=== PATIENT | female | born 1975 | race Caucasian/White ===

== ENCOUNTER 2016-09-12 10:54 | Emergency (ER) | payer MEDICARE ==
[2016-09-12] MEDS ORDERED: LACTATED RINGERS 1,000 ML ONE (12:11)
[2016-09-12] MEDS ORDERED: PROCHLORPERAZINE 5 MG/ML 2 ML VIAL ONE (12:11)
[2016-09-12] MEDS ORDERED: MECLIZINE HCL 25 MG TABLET ONE (12:11)
[2016-09-12 12:20] LABS: URINE BILIRUBIN NEGATIVE (NEGATIVE); URINE BLOOD NEGATIVE (NEGATIVE); URINE GLUCOSE (UA) 3+ (NEGATIVE); URINE LEUKOCYTE ESTERASE NEGATIVE (NEGATIVE); URINE NITRITE NEGATIVE (NEGATIVE); URINE PROTEIN NEGATIVE (NEGATIVE); URINE UROBILINOGEN NORMAL (0-1 mg/dl)
[2016-09-12 12:21] LABS: HCG,QUALITATIVE URINE NEGATIVE; URINE APPEARANCE CLEAR; URINE COLOR YELLOW
[2016-09-12 12:39] LABS: ABSOLUTE NEUTROPHIL COUNT 4.8 K/mm3 (1.8-7.7); BASO % 0.5 % (0.2-1.0); EOS # 0.3 (0.0-0.5); EOS % 3.7 % (0.9-2.9); HEMATOCRIT 37.6 % (37.0-47.0); HEMOGLOBIN 11.9 gm/l (12.0-16.0); IMM NEUT # 0.1 K/mm3 (0-0.2); IMM NEUT% 0.7 % (0-1); LYMPH # 2.7 (1.0-4.8); LYMPH % 31.8 % (15-45); MEAN CELL VOLUME 95.4 fl (81.0-99.0); MEAN CORPUSCULAR HEMOGLOBIN 30.2 pg (27.0-31.0); MEAN CORPUSCULAR HGB CONC 31.6 g/dl (33.0-37.0); MEAN PLATELET VOLUME 10.8 fl (7.4-10.4); MONO # 0.5 (0.0-0.8); MONO % 5.8 % (4-12); NEUT % 57.5 % (43-75); PLATELET COUNT 272 K/mm3 (130-400)
--- NOTE | 2016-09-12 13:24 | RAD ---
CHEST 2 VIEWS HISTORY: Weakness. Frontal and lateral chest radiographs dated 3717. COMPARISON: 04/07/2016 FINDINGS: FOCAL AIRSPACE OPACITY: No gross airspace consolidation. PLEURAL EFFUSION: None. CARDIOMEDIASTINAL SILHOUETTE: Nonenlarged. PNEUMOTHORAX: None identified. OSSEOUS STRUCTURES: Minor thoracic disc degeneration. IMPRESSION: No acute cardiopulmonary process noted.
[2016-09-12] MEDS ORDERED: DIAZEPAM 5 MG/ML SYRINGE 2 ML ONE (13:25)
[2016-09-12] MEDS ORDERED: IBUPROFEN 800 MG TABLET ONE (14:11)
== END 2016-09-12 14:44 | disposition home or self-care (01) ==
LOC: ED 10:54
DX: H81.10 Benign paroxysmal vertigo, unspecified ear (principal); E11.9 Type 2 diabetes mellitus without complications; R11.0 Nausea
CPT/HCPCS: 83605; 81025; 85025; 80048; 81003; 71020; 96375; 99284 ×2; 96374; 96361 ×2; 93005; A9270 ×2; J0780; J3360; J7120